=== PATIENT | male | born 1985 | race African-American/Black ===

== ENCOUNTER 2018-09-27 17:52 | Emergency (ER) | payer SELFPAY ==
[2018-09-27] MEDS ORDERED: IBUPROFEN 400 MG TAB ONE (20:07)
[2018-09-27] MEDS ORDERED: HYDROCODONE/APAP 7.5/325 MG TAB ONE (20:07)
--- NOTE | 2018-09-27 20:15 | RAD REPORT ---
EXAM DESCRIPTION: RAD - Hand Right 3 View - 09/27/2018 7:36 pm CLINICAL HISTORY: Recent and remote hand trauma, persistent pain COMPARISON: None. FINDINGS: No fracture is identified. There is no dislocation or periosteal reaction noted. No forei gn body or other soft tissue abnormality. IMPRESSION: Negative right hand examination.
--- NOTE | 2018-09-27 20:28 | ER ---
Nurse's Notes [facility] Name: Yuval Meeks Age: 33 yrs Sex: Male : 1985 Arrival Date: 09/27/2018 Time: 17:54 Bed 14 Private MD: None, None Diagnosis: Other injury of flexor muscle, fascia and tendon of right index finger at wrist and hand level;Contusion of index finger without damage to nail-Right Presentation: 09/27 18:49 Presenting complaint: Patient states: put his right hand through a glass window about 3 iw months ago, then he hit his right index finger a couple days ago and has had pain and swelling to finger, pain 06/27. Transition of care: patient was not received from another setting of care. Onset of symptoms was September 27, 2018. Risk Assessment: Do you want to hurt yourself or someone else? Patient reports no desire to harm self or others. Initial Sepsis Screen: Does the patient meet any 2 criteria? No. Patient's initial sepsis screen is negative. Does the patient have a suspected source of infection? No. Patient's initial sepsis screen is negative. Care prior to arrival: None. 18:49 Method Of Arrival: Ambulatory iw 18:49 Acuity: VASQUEZ 4 iw Historical: - Allergies: 18:52 No Known Allergies; iw - Home Meds: 18:52 None [Active]; iw - PMHx: 18:52 None; iw - PSHx: 18:52 None; iw - Immunization history:: Adult Immunizations up to date. - Social history:: Smoking status: Patient uses tobacco products, smokes one pack cigarettes per day. - Ebola Screening: : Patient negative for fever greater than or equal to 101.5 degrees Fahrenheit, and additional compatible Ebola Virus Disease symptoms Patient denies exposure to infectious person Patient denies travel to an Ebola-affected area in the 21 days before illness onset No symptoms or risks identified at this time. Screenin:42 Abuse screen: Denies threats or abuse. Denies injuries from another. Nutritional iw screening: No deficits noted. Tuberculosis screening: No symptoms or risk factors identified. Fall Risk None identified. Assessment: 19:41 General: Appears in no apparent distress. Behavior is calm, cooperative. Pain: iw Complains of pain in dorsal aspect of distal phalanx of right index finger, dorsal aspect of middle phalanx of right index finger, dorsal aspect of proximal phalanx of right index finger and right index fingernail. Neuro: Level of Consciousness is awake, alert, obeys commands, Oriented to person, place, time, situation, Moves all extremities. Full function. Cardiovascular: Patient's skin is warm and dry. Respiratory: Respiratory effort is even, unlabored. Derm: Skin is healthy with good turgor. Musculoskeletal: Reports pain in dorsal aspect of distal phalanx of right ring finger, dorsal aspect of middle phalanx of right ring finger and dorsal aspect of proximal phalanx of right ring finger. 20:00 Reassessment: Patient appears in no apparent distress at this time. seen by dr. logan obrien with order made and carried out. 20:36 Reassessment: Patient appears in no apparent distress at this time. Patient and/or rr5 family updated on plan of care and expected duration. Pain level reassessed. discharge instruction given and explained without complaints made. Patient states symptoms have improved. Vital Signs: 18:52 BP 134 / 74; Pulse 87; Resp 16; Temp 98.2; Pulse Ox 100% on R/A; Weight 72.57 kg; iw Height 6 ft. (182.88 cm); Pain 10/10; 20:00 BP 125 / 70; Pulse 85; Resp 19; Pulse Ox 99% ; rr5 18:52 Body Mass Index 21.70 (72.57 kg, 182.88 cm) ED Course: 17:54 Patient arrived in ED. mr 17:55 None, None is Private Physician. mr 18:42 Talya Joseph, RN is Primary Nurse. iw 18:44 Fadi Fernandez PA is PHCP. cp 18:44 Fadi Haley MD is Attending Physician. cp 18:52 Triage completed. iw 18:52 Arm band placed on. iw 19:36 XRAY Hand RIGHT 3 View: swelling index finger, unable to flex In Process Unspecified. EDMS 19:42 Patient did not have IV access during this emergency room visit. iw 20:00 Patient has correct armband on for positive identification. Bed in low position. Call rr5 light in reach. Side rails up X 1. Pulse ox on. NIBP on. 20:15 Aluminum finger splint applied to right index finger done by [facility] electrical instrument technician. rr5 20:38 No provider procedures requiring assistance completed. rr5 Administered Medications: 20:00 Drug: Ibuprofen 800 mg Route: PO; rr5 20:37 Follow up: Response: No adverse reaction rr5 20:00 Drug: Hydrocodone-Acetaminophen (7.5 mg-325 mg) 1 tabs Route: PO; rr5 20:37 Follow up: Response: No adverse reaction rr5 Outcome: 20:28 Discharge ordered by MD. cp 20:40 Discharged to home ambulatory. rr5 20:40 Condition: stable 20:40 Discharge instructions given to patient, Instructed on discharge instructions, follow up and referral plans. medication usage, Demonstrated understanding of instructions, follow-up care, medications, Prescriptions given X 2. 20:58 Patient left the ED. rr5 Signatures: Dispatcher [employer] Pamela Carl Irene, RN RN Fadi Cox PA PA cp Roque, Raymond, RN RN rr5
--- NOTE | 2018-09-27 20:28 | EDPHYS ---
Physician Documentation [facility] Name: Yuval Meeks Age: 33 yrs Sex: Male : 1985 Arrival Date: 09/27/2018 Time: 17:54 Bed 14 Private MD: None, None ED Physician Fadi Haley HPI: 09/27 19:55 This 33 yrs old Black Male presents to ER via Ambulatory with complaints of Finger cp Swelling. 19:55 The patient or guardian reports decreased range of motion, pain, swelling, tenderness. cp The complaints affect the right index finger. 19:55 Patient reports injuring right index after striking glass window 3 months ago and since cp he has been unable to flex finger. Patient reports he was seen after injury and laceration was closed but he did not f/u with hand surgery. Patient reports swelling over past couple days since slamming finger in door. Historical: - Allergies: 18:52 No Known Allergies; iw - Home Meds: 18:52 None [Active]; iw - PMHx: 18:52 None; iw - PSHx: 18:52 None; iw - Immunization history:: Adult Immunizations up to date. - Social history:: Smoking status: Patient uses tobacco products, smokes one pack cigarettes per day. - Ebola Screening: : Patient negative for fever greater than or equal to 101.5 degrees Fahrenheit, and additional compatible Ebola Virus Disease symptoms Patient denies exposure to infectious person Patient denies travel to an Ebola-affected area in the 21 days before illness onset No symptoms or risks identified at this time. ROS: 20:00 Constitutional: Negative for body aches, chills, fever, poor PO intake. cp 20:00 Eyes: Negative for injury, pain, redness, and discharge. cp 20:00 Cardiovascular: Negative for chest pain. cp 20:00 Respiratory: Negative for cough, shortness of breath, wheezing. 20:00 MS/extremity: Positive for injury or acute deformity, decreased range of motion, swelling, tenderness, of the right index finger, Negative for paresthesias, warmth. 20:00 All other systems are negative. Exam: 20:05 Constitutional: The patient appears in no acute distress, alert, awake, non-toxic, well cp developed, well nourished. 20:05 Head/Face: Normocephalic, atraumatic. cp 20:05 Eyes: Periorbital structures: appear normal, Conjunctiva: normal, no exudate, no cp injection, Lids and lashes: appear normal, bilaterally. 20:05 ENT: External ear(s): are unremarkable, Nose: is normal, Mouth: is normal. 20:05 Chest/axilla: Inspection: normal. 20:05 Cardiovascular: Rate: normal. 20:05 Respiratory: the patient does not display signs of respiratory distress, Respirations: cp normal, no use of accessory muscles, no retractions, no splinting, no tachypnea. 20:05 Musculoskeletal/extremity: Extremities: grossly normal except: noted in the right index finger: decreased ROM, pain, swelling, tenderness, Perfusion: the extremity is normally perfused throughout, Sensation intact. Tendon exam: postive for patient unable to flex digit. 20:05 Skin: cellulitis, is not appreciated, no rash present. Vital Signs: 18:52 BP 134 / 74; Pulse 87; Resp 16; Temp 98.2; Pulse Ox 100% on R/A; Weight 72.57 kg; iw Height 6 ft. (182.88 cm); Pain 10/10; 20:00 BP 125 / 70; Pulse 85; Resp 19; Pulse Ox 99% ; rr5 18:52 Body Mass Index 21.70 (72.57 kg, 182.88 cm) iw MDM: 18:45 Patient medically screened. cp 20:00 Differential diagnosis: dislocation, closed fracture, contusion. cp 20:26 Data reviewed: vital signs, nurses notes, radiologic studies, plain films. cp 20:26 Test interpretation: by ED physician or midlevel provider: plain radiologic studies. cp Counseling: I had a detailed discussion with the patient and/or guardian regarding: the historical points, exam findings, and any diagnostic results supporting the discharge/admit diagnosis, radiology results, the need for outpatient follow up, for definitive care, a hand specialist, to return to the emergency department if symptoms worsen or persist or if there are any questions or concerns that arise at home. Response to treatment: the patient's symptoms have markedly improved after treatment, and as a result, I will discharge patient. ED course: VSS. Finger placed in sugar tong aluminum splint. Will discharge to home for continued monitoring. 09/27 19:02 Order name: XRAY Hand RIGHT 3 View: swelling index finger, unable to flex; Complete cp Time: 20:18 09/27 20:18 Interpretation: Report reviewed. cp 09/27 20:57 Order name: Splint - Finger: aluminum; Complete Time: 20:58 cp Administered Medications: 20:00 Drug: Ibuprofen 800 mg Route: PO; rr5 20:37 Follow up: Response: No adverse reaction rr5 20:00 Drug: Hydrocodone-Acetaminophen (7.5 mg-325 mg) 1 tabs Route: PO; rr5 20:37 Follow up: Response: No adverse reaction rr5 Disposition: 09/28 07:11 Co-signature as Attending Physician, Fadi Haley MD I agree with the assessment and rachel plan of care. Disposition: 09/27/18 20:28 Discharged to Home. Impression: Other injury of flexor muscle, fascia and tendon of right index finger at wrist and hand level, Contusion of index finger without damage to nail - Right. - Condition is Stable. - Discharge Instructions: Hand Contusion, Flexor Digitorum Profundus Rupture. - Prescriptions for Ibuprofen 800 mg Oral Tablet - take 1 tablet by ORAL route every 8 hours As needed take with food; 30 tablet. Tramadol 50 mg Oral Tablet - take 1 tablet by ORAL route every 8 hours as needed; 12 tablet. - Medication Reconciliation Form, Thank You Letter, Antibiotic Education, Prescription Opioid Use form. - Follow up: Private Physician; When: DR Edwin Figueroa \T\[facility] [place] next week; Reason: Recheck today's complaints, call office \T\[phone]. Signatures: Dispatcher [employer] EDFadi Lopez MD MD cha Williams, Irene, RN RN iw Page, Corey, PA PA cp Roque, Raymond, RN RN rr5 Corrections: (The following items were deleted from the chart) 09/27 20:58 20:28 09/27/2018 20:28 Discharged to Home. Impression: Other injury of flexor muscle, rr5 fascia and tendon of right index finger at wrist and hand level; Contusion of index finger without damage to nail - Right. Condition is Stable. Forms are Medication Reconciliation Form, Thank You Letter, Antibiotic Education, Prescription Opioid Use. Follow up: Private Physician; When: DR Edwin Figueroa \T\[facility] next week; Reason: Recheck today's complaints, call office \T\[phone]. cp
== END 2018-09-27 20:58 | disposition home or self-care (01) ==
LOC: ER 17:52
DX: S66.190A Other injury of flexor muscle, fascia and tendon of right index finger at wrist and hand level, initial encounter (principal); S60.021A Contusion of right index finger without damage to nail, initial encounter; W23.0XXA Caught, crushed, jammed, or pinched between moving objects, initial encounter; F17.210 Nicotine dependence, cigarettes, uncomplicated
CPT/HCPCS: 99284